=== PATIENT | male | born 1965 | race Caucasian/White ===

== ENCOUNTER 2017-12-21 02:35 | Inpatient (IN) ==
[2017-12-21 03:47] LABS: Hematocrit 36.8 % (39.0-51.0); Hemoglobin 12.2 gm/dL (13.0-17.0); Mean Corpuscular Hemoglobin 30.9 pg (27.0-34.0); Mean Corpuscular Volume 93.4 fL (80.0-100.0); Mean Platelet Volume 8.8 fL (7.0-11.0); Platelet Count 159 th/mm3 (150-450); Red Blood Count 3.94 mil/mm3 (4.50-5.90); Red Cell Distribution Width 15.7 % (11.6-17.2); White Blood Count 9.4 th/mm3 (4.0-11.0)
[2017-12-21] MEDS ORDERED: Lidocaine 1% Inj 30 ML Vial INFILTRATN ONE (03:51)
[2017-12-21] MEDS ORDERED: Lidocaine 1% Inj 50 ML Vial ONE (03:54)
[2017-12-21] MEDS ORDERED: Phytonadione Inj 10 MG/ML Vial SQ ONE (04:50)
--- NOTE | 2017-12-21 05:09 | CT ---
EXAM DATE: 12/21/2017 4:22 AM EDT AGE/SEX: 52 years / Male INDICATIONS: Trauma. Fall with leg swelling. Evaluate for hematoma. CLINICAL DATA: This is the patient's initial encounter. Patient reports that signs and symptoms have been present for 1 day and indicates a pain score of 4/10. MEDICAL/SURGICAL HISTORY: Cardiovascular disease. Hypertension. Diabetes mellitus type II. . Hear t transplant RADIATION DOSE: 29.57 CTDI (mGy) COMPARISON: No prior exams available for comparison. TECHNIQUE: Multiple contiguous axial images were acquired using a multirow detector CT scanner witho ut contrast. Multiplanar reconstruction was performed in the sagittal and coronal planes. Using auto mated exposure control and adjustment of the mA and/or kV according to patient size, radiation dose w as kept as low as reasonably achievable to obtain optimal diagnostic quality images. DICOM format im age data is available electronically for review and comparison. FINDINGS: Bones: Visualized osseous structures are intact without evidence for acute bony fracture. Joints: No significant arthropathy or bony hypertrophy is seen. No significant suprapatellar joint e ffusion. Soft Tissues: There is a heterogeneous predominantly low density mass in the anterior compartment of the left thigh, vastus lateralis, measuring approximately 3.0 x 2.3 x 5.7 cm. There is soft tissue s tranding noted in the medial and anterior thigh. Other: No foreign bodies seen. Diffuse vascular calcifications noted in the SFA and profunda. CONCLUSION: 1. Heterogeneous predominantly low density mass centered about the vastus lateralis measuring 3.0 x 2.3 x 5.7 cm with regional soft tissue stranding in the anterior and medial thigh. In the appropriate clinical setting, findings are consistent with a subacute to chronic hematoma. Differential consider ations include infection and much less likely mass. Electronically signed by: Jon Alfaro MD 12/21/2017 5:08 AM EDT
[2017-12-21] MEDS ORDERED: Bisacodyl 10 MG Supp RECTAL PRN (05:39)
[2017-12-21] MEDS ORDERED: Acetaminophen 325 MG Tablet PO PRN (05:39)
[2017-12-21] MEDS ORDERED: Sod Chloride 0.9% Inj 1,000 ML IV.CONT SCH (05:45)
--- NOTE | 2017-12-21 05:49 | ED ---
HPI General Chief complaint: Fall Stated complaint: fall Time Seen by Provider: 12/21/17 03:19 History of Present Illness HPI narrative: 52-year-old man with factor V Leiden deficiency, on chronic Coumadin therapy, had accidental fall yesterday, struck his lip,Which has been bleeding since that time, is very swollen, but is benign able to get the bleeding stopped on his own. He has a small laceration to the midportion of his lower lip, but simple pressure has not been able to stop it. He follows his INR's regularly, latest was 2 weeks ago, and he is scheduled to have it repeated this week. He has some variation in his diet, possibly reports that he may have been eating fewer leafy greens than he normally does, but has no other change in his habits and no changes in his warfarin dosing. He did not strike his head, there is no loss of consciousness, he did not hit his chest, but he has no headache, no focal neurologic symptoms, no chest pain. Patient also struck his left thigh, in the fall, feels that it is also swollen, it is increasingly uncomfortable. He has no loss of sensation in that area, he has been able to walk on it normally no hip pain, no pelvic pain, no knee swelling or pain. Related Data Home Medications Medication Instructions Recorded Confirmed aspirin 81 mg PO DAILY 12/21/17 12/21/17 calcium carbonate-vitamin D3 tab PO BID 12/21/17 [Calcium 500 + D] losartan 25 mg PO DAILY 12/21/17 12/21/17 magnesium oxide 400 mg PO BID 12/21/17 12/21/17 mycophenolate mofetil [CellCept] 1,000 mg PO BID 12/21/17 12/21/17 omeprazole 20 mg PO DAILY 12/21/17 12/21/17 tacrolimus [Prograf] 2 mg PO Q12H 12/21/17 12/21/17 warfarin [Coumadin] 8 mg PO DAILY 12/21/17 12/21/17 Allergies Allergy/AdvReac Type Severity Reaction Status Date / Time No Known Allergies Allergy Verified 12/21/17 06:28 Review of Systems ROS: all other systems reviewed are negative [facility] Medical History Medical History Diabetes (Acute) HTN (hypertension) (Acute) Hypercholesteremia (Acute) Surgical History Surgical History Hx of heart transplant (Acute) Family History Family History Other CAD (coronary artery disease) Social History Social History Substance History: No History of Abuse Second Hand Smoke Exposure: No Smoking Status: Former smoker Tobacco Type: Cigarettes How Often Do You Have a Drink Containing Alcohol: 2 to 3 times a week Recent Travel in [facility] within the Last 8 Weeks: No Recent Out of Country Travel within the Last 8 Weeks: No Immunization History Tetanus Immunization: Unsure Hx Influenza Vaccine This Season: No Exam Narrative Exam Narrative: GENERAL: Generally healthy-appearing adult male, vital signs are stable, afebrile, but has considerable swelling to his lower lip with ecchymosis, but otherwise little acute distress other than localized pain in his left thigh laterally. SKIN: Focused skin assessment warm/dry. HEAD: Atraumatic. Normocephalic. EYES: Pupils equal and round. No scleral icterus. No injection or drainage. ENT: Large subcutaneous ecchymosis/hematoma across the entire extent of lower lip, with minute 3 mm vertical laceration mid lip surface, with continuous oozing. Teeth are intact, no other mucosal or buccal laceration, tongue is intact. No nasal bleeding or discharge. Mucous membranes pink and moist. NECK: Trachea midline. No JVD. CARDIOVASCULAR: Regular rate and rhythm. No murmur appreciated. RESPIRATORY: No accessory muscle use. Clear to auscultation. Breath sounds equal bilaterally. GASTROINTESTINAL: Abdomen soft, non-tender, nondistended. Hepatic and splenic margins not palpable. MUSCULOSKELETAL: Left thigh is fairly tender lateral overlying the iliotibial band on the left side, with moderate edema and some tension, there is no overt ecchymosis. Hip movement is nontender, knee movement is nontender. NEUROLOGICAL: Awake and alert. No obvious cranial nerve deficits. Motor grossly within normal limits. Normal speech. PSYCHIATRIC: Appropriate mood and affect; insight and judgment normal. Course Initial Documented Vital Signs Temperature 97.9 F 12/21/17 03:00 Pulse Rate 126 H 12/21/17 03:00 Respiratory Rate 18 12/21/17 03:00 Blood Pressure 127/91 H 12/21/17 03:00 Pulse Oximetry 98 12/21/17 03:00 Last Documented Vital Signs Temperature 97.3 F L 12/22/17 08:00 Pulse Rate 133 H 12/22/17 08:00 Respiratory Rate 20 12/22/17 08:00 Blood Pressure 111/59 L 12/22/17 08:00 Pulse Oximetry 96 12/22/17 08:00 Medical Decision Making MDM Narrative Medical decision making narrative: Patient has excess anticoagulation, INR is greater than 18, and cause is not quite clear, but he has no acute change in medication dose, no particular change in diet, and no signs of other illness that would cause alteration of his INR. Further, CT scan shows a 5 x 3 x 3 cm hematoma in the left lateral thigh area, but no fracture. A hemostatic suture was placed in his lip, but this area bled as well, and no further attempts were made at stenting the bleeding, as each suture puncture tended to cause additional bleeding. Hemoglobin is stable, electrolytes are stable, patient administered initial dose of vitamin K, and will be admitted for observation, further care and reversal of excess anticoagulation. Medical Screen Exam Complete: Yes Emergency Medical Condition: Yes Lab Data Result diagrams: 12/22/17 05:02 12/22/17 05:02 Lab Results 12/21/17 12/21/17 12/21/17 Range/Units 03:42 03:42 05:07 WBC 9.4 (4.0-11.0) th/mm3 RBC 3.94 L (4.50-5.90) mil/mm3 Hgb 12.2 L (13.0-17.0) gm/dL Hct 36.8 L (39.0-51.0) % MCV 93.4 (80.0-100.0) fL MCH 30.9 (27.0-34.0) pg MCHC 33.0 (32.0-36.0) % RDW 15.7 (11.6-17.2) % Plt Count 159 (150-450) th/mm3 MPV 8.8 (7.0-11.0) fL Neut % (Auto) (16.0-70.0) % Lymph % (Auto) (9.0-44.0) % Maries % (Auto) (0.0-8.0) % Eos % (Auto) (0.0-4.0) % Baso % (Auto) (0.0-2.0) % Neut # (Auto) (1.8-7.7) th/mm3 Lymph # (Auto) (1.0-4.8) th/mm3 Maries # (Auto) (0.0-0.9) th/mm3 Eos # (Auto) (0.0-0.4) th/mm3 Baso # (Auto) (0.0-0.2) th/mm3 WBC Differential Differential Comment PT Greater than 180.0 H (9.8-11.6) sec INR Greater than 18.2 H* Ratio APTT (24.3-30.1) sec Sodium 137 (136-145) meq/L Potassium 4.9 (3.5-5.1) meq/L Chloride 102 (98-107) meq/L Carbon Dioxide 22.0 (21.0-32.0) meq/L Anion Gap 13 (5-15) meq/L BUN 36 H (7-18) mg/dL Creatinine 1.40 H (0.60-1.30) mg/dL Estimated GFR 53 L (>89) mL/min POC Glucose (68-110) mg/dl Random Glucose 447 H (74-106) mg/dL Calcium 7.8 L (8.5-10.1) mg/dL Total Bilirubin 0.8 (0.2-1.0) mg/dL AST 92 H (15-37) U/L ALT 116 H (12-78) U/L Alkaline Phosphatase 137 H (45-117) U/L Total Protein 6.1 L (6.4-8.2) g/dL Albumin 3.2 L (3.4-5.0) g/dL 12/21/17 12/21/17 12/21/17 Range/Units 05:07 06:55 10:04 WBC (4.0-11.0) th/mm3 RBC (4.50-5.90) mil/mm3 Hgb (13.0-17.0) gm/dL Hct (39.0-51.0) % MCV (80.0-100.0) fL MCH (27.0-34.0) pg MCHC (32.0-36.0) % RDW (11.6-17.2) % Plt Count (150-450) th/mm3 MPV (7.0-11.0) fL Neut % (Auto) (16.0-70.0) % Lymph % (Auto) (9.0-44.0) % Maries % (Auto) (0.0-8.0) % Eos % (Auto) (0.0-4.0) % Baso % (Auto) (0.0-2.0) % Neut # (Auto) (1.8-7.7) th/mm3 Lymph # (Auto) (1.0-4.8) th/mm3 Maries # (Auto) (0.0-0.9) th/mm3 Eos # (Auto) (0.0-0.4) th/mm3 Baso # (Auto) (0.0-0.2) th/mm3 WBC Differential Differential Comment PT (9.8-11.6) sec INR Ratio APTT 69.6 H (24.3-30.1) sec Sodium (136-145) meq/L Potassium (3.5-5.1) meq/L Chloride (98-107) meq/L Carbon Dioxide (21.0-32.0) meq/L Anion Gap (5-15) meq/L BUN (7-18) mg/dL Creatinine (0.60-1.30) mg/dL Estimated GFR (>89) mL/min POC Glucose 463 H* 384 H (68-110) mg/dl Random Glucose (74-106) mg/dL Calcium (8.5-10.1) mg/dL Total Bilirubin (0.2-1.0) mg/dL AST (15-37) U/L ALT (12-78) U/L Alkaline Phosphatase (45-117) U/L Total Protein (6.4-8.2) g/dL Albumin (3.4-5.0) g/dL 12/21/17 12/21/17 12/21/17 Range/Units 10:53 12:01 17:04 WBC (4.0-11.0) th/mm3 RBC (4.50-5.90) mil/mm3 Hgb (13.0-17.0) gm/dL Hct (39.0-51.0) % MCV (80.0-100.0) fL MCH (27.0-34.0) pg MCHC (32.0-36.0) % RDW (11.6-17.2) % Plt Count (150-450) th/mm3 MPV (7.0-11.0) fL Neut % (Auto) (16.0-70.0) % Lymph % (Auto) (9.0-44.0) % Maries % (Auto) (0.0-8.0) % Eos % (Auto) (0.0-4.0) % Baso % (Auto) (0.0-2.0) % Neut # (Auto) (1.8-7.7) th/mm3 Lymph # (Auto) (1.0-4.8) th/mm3 Maries # (Auto) (0.0-0.9) th/mm3 Eos # (Auto) (0.0-0.4) th/mm3 Baso # (Auto) (0.0-0.2) th/mm3 WBC Differential Differential Comment PT 94.4 H D (9.8-11.6) sec INR 9.5 H* Ratio APTT (24.3-30.1) sec Sodium (136-145) meq/L Potassium (3.5-5.1) meq/L Chloride (98-107) meq/L Carbon Dioxide (21.0-32.0) meq/L Anion Gap (5-15) meq/L BUN (7-18) mg/dL Creatinine (0.60-1.30) mg/dL Estimated GFR (>89) mL/min POC Glucose 317 H 179 H (68-110) mg/dl Random Glucose (74-106) mg/dL Calcium (8.5-10.1) mg/dL Total Bilirubin (0.2-1.0) mg/dL AST (15-37) U/L ALT (12-78) U/L Alkaline Phosphatase (45-117) U/L Total Protein (6.4-8.2) g/dL Albumin (3.4-5.0) g/dL 12/21/17 12/22/17 12/22/17 Range/Units 21:34 05:02 05:02 WBC 7.1 (4.0-11.0) th/mm3 RBC 3.00 L (4.50-5.90) mil/mm3 Hgb 9.4 L D (13.0-17.0) gm/dL Hct 27.9 L (39.0-51.0) % MCV 93.1 (80.0-100.0) fL MCH 31.3 (27.0-34.0) pg MCHC 33.6 (32.0-36.0) % RDW 15.9 (11.6-17.2) % Plt Count 113 L (150-450) th/mm3 MPV 8.6 (7.0-11.0) fL Neut % (Auto) 76.8 H (16.0-70.0) % Lymph % (Auto) 14.3 (9.0-44.0) % Maries % (Auto) 7.6 (0.0-8.0) % Eos % (Auto) 0.9 (0.0-4.0) % Baso % (Auto) 0.4 (0.0-2.0) % Neut # (Auto) 5.4 (1.8-7.7) th/mm3 Lymph # (Auto) 1.0 (1.0-4.8) th/mm3 Maries # (Auto) 0.5 (0.0-0.9) th/mm3 Eos # (Auto) 0.1 (0.0-0.4) th/mm3 Baso # (Auto) 0.0 (0.0-0.2) th/mm3 WBC Differential . Differential Comment Auto diff final PT 29.4 H D (9.8-11.6) sec INR 2.9 Ratio APTT (24.3-30.1) sec Sodium (136-145) meq/L Potassium (3.5-5.1) meq/L Chloride (98-107) meq/L Carbon Dioxide (21.0-32.0) meq/L Anion Gap (5-15) meq/L BUN (7-18) mg/dL Creatinine (0.60-1.30) mg/dL Estimated GFR (>89) mL/min POC Glucose 248 H (68-110) mg/dl Random Glucose (74-106) mg/dL Calcium (8.5-10.1) mg/dL Total Bilirubin (0.2-1.0) mg/dL AST (15-37) U/L ALT (12-78) U/L Alkaline Phosphatase (45-117) U/L Total Protein (6.4-8.2) g/dL Albumin (3.4-5.0) g/dL 10/02/18 10/02/18 Range/Units 05:02 07:34 WBC (4.0-11.0) th/mm3 RBC (4.50-5.90) mil/mm3 Hgb (13.0-17.0) gm/dL Hct (39.0-51.0) % MCV (80.0-100.0) fL MCH (27.0-34.0) pg MCHC (32.0-36.0) % RDW (11.6-17.2) % Plt Count (150-450) th/mm3 MPV (7.0-11.0) fL Neut % (Auto) (16.0-70.0) % Lymph % (Auto) (9.0-44.0) % Maries % (Auto) (0.0-8.0) % Eos % (Auto) (0.0-4.0) % Baso % (Auto) (0.0-2.0) % Neut # (Auto) (1.8-7.7) th/mm3 Lymph # (Auto) (1.0-4.8) th/mm3 Maries # (Auto) (0.0-0.9) th/mm3 Eos # (Auto) (0.0-0.4) th/mm3 Baso # (Auto) (0.0-0.2) th/mm3 WBC Differential Differential Comment PT (9.8-11.6) sec INR Ratio APTT (24.3-30.1) sec Sodium 140 (136-145) meq/L Potassium 4.1 D (3.5-5.1) meq/L Chloride 104 (98-107) meq/L Carbon Dioxide 26.1 (21.0-32.0) meq/L Anion Gap 10 (5-15) meq/L BUN 32 H (7-18) mg/dL Creatinine 1.13 (0.60-1.30) mg/dL Estimated GFR 68 L (>89) mL/min POC Glucose 272 H (68-110) mg/dl Random Glucose 170 H D (74-106) mg/dL Calcium 7.8 L (8.5-10.1) mg/dL Total Bilirubin 1.0 (0.2-1.0) mg/dL AST 54 H (15-37) U/L ALT 73 (12-78) U/L Alkaline Phosphatase 112 (45-117) U/L Total Protein 5.6 L (6.4-8.2) g/dL Albumin 2.8 L (3.4-5.0) g/dL Imaging Data Radiologist's impression: Femur CT 12/21/17 04:15 CONCLUSION: 1. Heterogeneous predominantly low density mass centered about the vastus lateralis measuring 3.0 x 2.3 x 5.7 cm with regional soft tissue stranding in the anterior and medial thigh. In the appropriate clinical setting, findings are consistent with a subacute to chronic hematoma. Differential considerations include infection and much less likely mass. Discharge Plan Discharge Disposition Patient Disposition: 30 Still Patient Discharge Condition Condition: Stable Discharge Order Discharge Orders: Discharge Order (Routine); Ordered 12/22/17 Ordered By: Chato Orozco Discharge Details Diagnosis: Anticoagulation excessive Physicians Team ED Provider: Elijah Baumann Primary Care Provider: Richardson Lawson Attending Provider: Chato Orozco Status ED Status: Left Department Discharge Information Discharge Date/Time: 12/21/17 08:11
[2017-12-21 05:52] LABS: Alanine Aminotransferase 116 U/L (12-78); Albumin 3.2 g/dL (3.4-5.0); Alkaline Phosphatase 137 U/L (45-117); Anion Gap 13 meq/L (5-15); Aspartate Aminotransferase 92 U/L (15-37); Blood Urea Nitrogen 36 mg/dL (7-18); Calcium 7.8 mg/dL (8.5-10.1); Chloride 102 meq/L (98-107); Glomerular Filtration Rate 53 mL/min (>89); Glucose,Random 447 mg/dL (74-106); Potassium 4.9 meq/L (3.5-5.1); Sodium 137 meq/L (136-145); Total Protein 6.1 g/dL (6.4-8.2)
[2017-12-21] MEDS ORDERED: Dextrose 50% in Water 50 ML Vial IV.PUSH PRN ×2 (05:52→10:09)
[2017-12-21] MEDS: Morphine Inj 4 MG/ML Vial IV.PUSH PRN ×4 (06:11→21:41)
[2017-12-21] MEDS ORDERED: Insulin NovoLOG Aspart Correctional Sugar Inj SQ SCH (08:00)
[2017-12-21] MEDS ORDERED: Senna/Docusate Sodium 8.6/50 MG Tablet PO SCH (09:00)
[2017-12-21] MEDS: Pantoprazole Sodium 20 MG DR Tablet PO SCH (09:06)
[2017-12-21] MEDS ORDERED: Naloxone Inj 0.4 MG/ML Vial IV.PUSH PRN (10:51)
[2017-12-21 11:30] LABS: Prothrombin Time 94.4 sec (9.8-11.6)
--- NOTE | 2017-12-21 11:36 | P.HP ---
History of Present Illness Primary Care Physician: Richardson Lawson MD Chief Complaint: Mechanical fall, bleeding gum, elevated INR History of Present Illness: 52-year-old man with a past medical history of factor V Leiden deficiency, according Coumadin for multiple episode of PEs and DVTs came to the ED yesterday for evaluation of bleeding lower lip as well as left lower extremity pain after patient's sustained a mechanical fall. While in the ED, patient was found to have INR above 18 for which he was given vitamin K. Patient states, he usually monitor his INR once a month and its falls in the range of 2-3. However states over the past several days he may have taking more than his usual dose of Coumadin, despite eating fewer leafy greens than he normally does. Denies any hemoptysis, hematuria, hematemesis. He has no chest pain or shortness of breath. - Diagnosis (1) Diabetes type 2, uncontrolled (2) Diabetes mellitus, type 2 (3) Anticoagulation excessive (4) Hematoma (5) Hematoma of lower limb Inpatient Certification: I certify that the inpatient services were ordered in accordance with Medicare regulations governing the order. This includes certification that hospital inpatient services are reasonable and necessary and in the case of services not specified as inpatient-only under 42 CFR 419.22(n), that they are appropriately provided as inpatient services in accordance to with the 2-midnight benchmark under 43 CFR 412.3(e) Estimated Total Length of Stay (Days): 2 Plans for Post Hospital Care: Not yet determined Review of Systems All other systems reviewed negative except as stated in HPI PMFSH - History History Provided By: Patient - Medical History Medical History: Medical History (Last Updated 12/21/17 @ 03:06 by Srinath Hernandez) Diabetes HTN (hypertension) Hypercholesteremia - Surgical History Surgical History: Surgical History (Last Updated 12/21/17 @ 03:06 by Srinath Hernandez) Hx of heart transplant - Family History Family History: Family History (Last Updated 12/21/17 @ 11:28 by Chato Orozco MD) Other CAD (coronary artery disease) - Tobacco History Second Hand Smoke Exposure: No Tobacco Use In Past 30 Days: No Smoking Status: Former smoker Tobacco Type: Cigarettes - Alcohol History How Often Do You Have a Drink Containing Alcohol: 2 to 3 times a week - Substance Use History Substance History: No History of Abuse - Travel History Recent Travel in the [place] Within the Last 8 Weeks: No Recent Travel Out of the Country Within the Last 8 Weeks: No - Immunization History Tetanus Immunization: Unsure Hx Influenza Vaccine This Season: No Medications and Allergies Active Medications: Active Medications Acetaminophen (Tylenol) 650 mg PO Q4H PRN PRN Reason: Temp > 100.4 Hydrocodone Bitart/Acetaminophen ([place] 5/325) 1 tab PO Q4H PRN PRN Reason: PAIN SCALE 3 TO 5 Hydrocodone Bitart/Acetaminophen ([place] 7.5/325) 1 tab PO Q4H PRN PRN Reason: PAIN SCALE 6 TO 10 Al Hydroxide/Mg Hydroxide (Milk Of Magnesia Liq) 30 ml PO Q12H PRN PRN Reason: Mild Constipation Bisacodyl (Dulcolax Supp) 10 mg RECTAL DAILY PRN PRN Reason: SEVERE CONSITIPATION Dextrose (D50w Vial) 50 ml IV.PUSH UNSCH PRN PRN Reason: PER HYPOGLYCEMIA PROTOCOL Glucagon (Glucagon Inj) 1 mg OTHER UNSCH PRN PRN Reason: for Hypoglycemia Protocol Insulin Aspart (Novolog Insulin Correctional Sugar Inj) 0 unit SQ ACHS [facility]HEL; Protocol Insulin Detemir (Levemir Inj) 28 unit SQ DAILY [facility] Lactulose (Lactulose Liq) 30 ml PO DAILY PRN PRN Reason: SEVERE CONSITIPATION Losartan Potassium (Cozaar) 25 mg PO DAILY [facility] Morphine Sulfate (Morphine Inj) 2 mg IV.PUSH Q4H PRN PRN Reason: PAIN 6-10 Last Admin: 12/21/17 10:33 Dose: 2 mg Mycophenolate Mofetil (Cellcept) 1,000 mg PO BID [facility] Last Admin: 12/21/17 10:01 Dose: 1,000 mg Naloxone HCl (Narcan Inj) 0.4 mg IV.PUSH UNSCH PRN PRN Reason: SEE LABEL COMMENTS Non-Formulary Medication (Magnesium Oxide [Magnesium Oxide]) 400 mg PO BID [facility] Ondansetron HCl (Zofran Inj) 4 mg IV.PUSH Q6H PRN PRN Reason: NAUSEA OR VOMITING Last Admin: 12/21/17 06:12 Dose: 4 mg Pantoprazole Sodium (Protonix) 20 mg PO DAILY [facility] Last Admin: 12/21/17 09:06 Dose: 20 mg Sennosides (Senokot) 17.2 mg PO Q12H PRN PRN Reason: Moderate Constipation Tacrolimus (Prograf) 2 mg PO Q12H [facility] Last Admin: 12/21/17 06:55 Dose: 2 mg Allergies Allergy/AdvReac Type Severity Reaction Status Date / Time No Known Allergies Allergy Verified 12/21/17 06:28 Home Medications Medication Instructions Recorded Confirmed Type aspirin 81 mg PO DAILY 12/21/17 12/21/17 History calcium carbonate-vitamin D3 tab PO BID 12/21/17 History [Calcium 500 + D] losartan 25 mg PO DAILY 12/21/17 12/21/17 History magnesium oxide 400 mg PO BID 12/21/17 12/21/17 History mycophenolate mofetil [CellCept] 1,000 mg PO BID 12/21/17 12/21/17 History omeprazole 20 mg PO DAILY 12/21/17 12/21/17 History tacrolimus [Prograf] 2 mg PO Q12H 12/21/17 12/21/17 History warfarin [Coumadin] 8 mg PO DAILY 12/21/17 12/21/17 History Exam Vital signs: Vital Signs 12/21/17 03:00 12/21/17 03:16 12/21/17 08:00 Temperature 97.9 F 98.0 F Pulse Rate 126 H 120 H 108 H Respiratory Rate 18 18 16 Blood Pressure 127/91 H 132/91 H 122/80 Pulse Oximetry 98 96 98 Intake & Output 12/20/17 12/21/17 12/21/17 18:59 06:59 18:59 Intake Total 100 / 100 Balance 100 / 100 Weight 120.202 kg 113.39 kg Intake: IV 100 / 100 NS Inj 1,000 ML @ 100 mls/hr IV 100 / 100 .CONT .Q10H [facility] Rx#:[id number] Other: Weight On Admission 113.39 kg Narrative: GENERAL: NAD SKIN: Warm and dry. HEAD: Atraumatic. Normocephalic. EYES: Pupils equal and round. No scleral icterus. No injection or drainage. ENT: No nasal bleeding or discharge. Mucous membranes pink and moist. Swallow midportion lower lip with dried blood NECK: Trachea midline. No JVD. CARDIOVASCULAR: Regular rate and rhythm. RESPIRATORY: No accessory muscle use. Clear to auscultation. Breath sounds equal bilaterally. GASTROINTESTINAL: Abdomen soft, non-tender, nondistended. Hepatic and splenic margins not palpable. MUSCULOSKELETAL: Extremities without clubbing, cyanosis, or edema. No obvious deformities. Tender to palpation left hip area NEUROLOGICAL: Awake and alert. No obvious cranial nerve deficits. Motor grossly within normal limits. Five out of 5 muscle strength in the arms and legs. Normal speech. PSYCHIATRIC: Appropriate mood and affect; insight and judgment normal. Results - Labs CBC & Chem 7: 12/21/17 03:42 12/21/17 05:07 Labs: Laboratory Results - last 24 hr 12/21/17 12/21/17 12/21/17 03:42 03:42 05:07 WBC 9.4 RBC 3.94 L Hgb 12.2 L Hct 36.8 L MCV 93.4 MCH 30.9 MCHC 33.0 RDW 15.7 Plt Count 159 MPV 8.8 PT Greater than 180.0 H INR Greater than 18.2 H* APTT Sodium 137 Potassium 4.9 Chloride 102 Carbon Dioxide 22.0 Anion Gap 13 BUN 36 H Creatinine 1.40 H Estimated GFR 53 L POC Glucose Random Glucose 447 H Calcium 7.8 L Total Bilirubin 0.8 AST 92 H ALT 116 H Alkaline Phosphatase 137 H Total Protein 6.1 L Albumin 3.2 L 12/21/17 12/21/17 12/21/17 05:07 06:55 10:04 WBC RBC Hgb Hct MCV MCH MCHC RDW Plt Count MPV PT INR APTT 69.6 H Sodium Potassium Chloride Carbon Dioxide Anion Gap BUN Creatinine Estimated GFR POC Glucose 463 H* 384 H Random Glucose Calcium Total Bilirubin AST ALT Alkaline Phosphatase Total Protein Albumin - Imaging Impressions Femur CT 12/21/17 04:15 CONCLUSION: 1. Heterogeneous predominantly low density mass centered about the vastus lateralis measuring 3.0 x 2.3 x 5.7 cm with regional soft tissue stranding in the anterior and medial thigh. In the appropriate clinical setting, findings are consistent with a subacute to chronic hematoma. Differential considerations include infection and much less likely mass. Caprini VTE Risk Assessment Caprini VTE Risk Assessment: Moderate/High Risk (score >= 2) VTE Pharmacological Exception Reason: Coagulopathy,INR elevated Caprini Risk Assessment Model: Point Value = 1 Point Value = 2 Point Value = 3 Point Value = 5 Age 41-60 Minor surgery BMI > 25 kg/m2 Swollen legs Varicose veins or History of unexplained or recurrent spontaneous Oral contraceptives or hormone replacement Sepsis (< 1 month) Serious lung disease, including pneumonia (< 1 month) Abnormal pulmonary function Acute myocardial infarction Congestive heart failure (< 1 month) History of inflammatory bowel disease Medical patient at bed rest Age 61-74 Arthroscopic surgery Major open surgery (> 45 min) Laparoscopic surgery (> 45 min) Malignancy Confined to bed (> 72 hours) Immobilizing plaster cast Central venous access Age >= 75 History of VTE Family history of VTE Factor V Leiden Prothrombin [id number] Lupus anticoagulant Anticardiolipin antibodies Elevated serum homocysteine Heparin-induced thrombocytopenia Other congenital or acquired thrombophilia Stroke (< 1 month) Elective arthroplasty Hip, pelvis, or leg fracture Acute spinal cord injury (< 1 month) Prophylaxis Regimen: Total Risk Factor Score Risk Level Prophylaxis Regimen 0-1 Low Early ambulation 2 Moderate Order ONE of the following: *Sequential Compression Device (SCD) *Heparin 5000 units SQ BID 3-4 Higher Order ONE of the following medications: *Heparin 5000 units SQ TID *Enoxaparin/Lovenox 40 mg SQ daily (WT < 150 kg, CrCl > 30 mL/min) *Enoxaparin/Lovenox 30 mg SQ daily (WT < 150 kg, CrCl > 10-29 mL/min) *Enoxaparin/Lovenox 30 mg SQ BID (WT < 150 kg, CrCl > 30 mL/min) AND/OR *Sequential Compression Device (SCD) 5 or more Highest Order ONE of the following medications: *Heparin 5000 units SQ TID (Preferred with Epidurals) *Enoxaparin/Lovenox 40 mg SQ daily (WT < 150 kg, CrCl > 30 mL/min) *Enoxaparin/Lovenox 30 mg SQ daily (WT < 150 kg, CrCl > 10-29 mL/min) *Enoxaparin/Lovenox 30 mg SQ BID (WT < 150 kg, CrCl > 30 mL/min) AND *Sequential Compression Device (SCD) Assessment and Plan - Assessment (1) Diabetes type 2, uncontrolled Code(s): E11.65 - Status: Acute (2) Diabetes mellitus, type 2 Code(s): E11.9 - Status: Acute (3) Anticoagulation excessive Status: Acute (4) Hematoma Code(s): T14.8XXA - Status: Acute (5) Hematoma of lower limb Code(s): S80.10XA - Status: Acute - Plan 52-year-old male with Coagulopathy Status Post treatment with vitamin K in the ED Monitor INR and PT History of PEs and DVT, on chronic Coumadin Secondary to coagulopathy, continue to hold INR and PT Hematoma of left lower extremity Femur CT noted and reviewed by me with finding of hematoma 3.0 x 2.3 x 5.7 cm with regional soft tissue stranding in the anterior and medial thigh. Diabetes type 2 Resume Levemir 28 units daily, change to High ISS History of factor V Leiden deficiency Chronic, outpatient management DVT Prophylaxis Chemical anti-prophylactic is contraindicated Compression stocking/SCD is also contraindicated secondary to hematoma
[2017-12-21 11:42] LABS: INR 9.5 Ratio
[2017-12-21] MEDS: Insulin Detemir Inj 1,000 UNIT/10 ML Vial SQ SCH (12:07)
[2017-12-21] MEDS: Insulin NovoLOG Aspart Correctional Sugar Inj SQ SCH ×3 (12:07→21:45)
[2017-12-21] MEDS: Magnesium Oxide 400 MG Tablet PO SCH ×2 (14:33→21:47)
--- NOTE | 2017-12-21 15:50 | ECG ---
Date Performed: 12/21/2017 Time Performed: 03:14:34 PTAGE: 52 years EKG: SINUS TACHYCARDIA NONSPECIFIC T-WAVE ABNORMALITY ABNORMAL ECG PREVIOUS TRACING :12/10/2013 @11.10 Compared to previous tracing, previously noted paced rhythm is no longer present. DOCTOR: Yuliet Zafar Interpretating Date/Time 12/21/2017 15:50:05
[2017-12-22 02:22] VITALS: O2SAT 96
[2017-12-22] MEDS: Morphine Inj 4 MG/ML Vial IV.PUSH PRN (05:03)
[2017-12-22 06:50] LABS: Baso % (Auto) 0.4 % (0.0-2.0); Eos # (Auto) 0.1 th/mm3 (0.0-0.4); Eos % (Auto) 0.9 % (0.0-4.0); Hematocrit 27.9 % (39.0-51.0); Hemoglobin 9.4 gm/dL (13.0-17.0); Lymph % (Auto) 14.3 % (9.0-44.0); Mean Corpuscular HGB Conc 33.6 % (32.0-36.0); Mean Corpuscular Hemoglobin 31.3 pg (27.0-34.0); Mean Corpuscular Volume 93.1 fL (80.0-100.0); Mean Platelet Volume 8.6 fL (7.0-11.0); Mono # (Auto) 0.5 th/mm3 (0.0-0.9); Mono % (Auto) 7.6 % (0.0-8.0); Neut # (Auto) 5.4 th/mm3 (1.8-7.7); Neut % (Auto) 76.8 % (16.0-70.0); Platelet Count 113 th/mm3 (150-450); Red Cell Distribution Width 15.9 % (11.6-17.2); White Blood Count 7.1 th/mm3 (4.0-11.0)
[2017-12-22 06:51] LABS: INR 2.9 Ratio; Prothrombin Time 29.4 sec (9.8-11.6)
[2017-12-22 07:48] LABS: Alanine Aminotransferase 73 U/L (12-78); Albumin 2.8 g/dL (3.4-5.0); Alkaline Phosphatase 112 U/L (45-117); Anion Gap 10 meq/L (5-15); Aspartate Aminotransferase 54 U/L (15-37); Blood Urea Nitrogen 32 mg/dL (7-18); Calcium 7.8 mg/dL (8.5-10.1); Carbon Dioxide 26.1 meq/L (21.0-32.0); Chloride 104 meq/L (98-107); Glomerular Filtration Rate 68 mL/min (>89); Glucose,Random 170 mg/dL (74-106); Potassium 4.1 meq/L (3.5-5.1); Sodium 140 meq/L (136-145); Total Protein 5.6 g/dL (6.4-8.2)
[2017-12-22] MEDS: Pantoprazole Sodium 20 MG DR Tablet PO SCH (08:29)
[2017-12-22] MEDS: Magnesium Oxide 400 MG Tablet PO SCH (08:29)
[2017-12-22 08:34] VITALS: BP 111/59; PULSE 133; RESP 20; TEMP 97.3
--- NOTE | 2017-12-22 09:03 | P.PN ---
Subjective Interval history: Follow-up coagulopathy December 22, 2017-patient seen and examined, INR down to 2.9; he complains of left lower extremity thigh pain and states it hurts to put weight on it otherwise no other issues. Physical Exam Vital signs: Vital Signs 12/21/17 12:00 12/21/17 12:49 12/21/17 15:55 Temperature 97.9 F Pulse Rate 118 H Respiratory Rate 16 16 18 Blood Pressure 127/90 Pulse Oximetry 98 12/21/17 16:00 12/21/17 18:13 12/21/17 20:00 Temperature 98.0 F 98.3 F Pulse Rate 112 H 114 H Respiratory Rate 16 18 18 Blood Pressure 123/80 131/77 Pulse Oximetry 97 94 L 12/22/17 00:00 12/22/17 04:00 12/22/17 05:41 Temperature 98.3 F 98.4 F Pulse Rate 116 H 117 H Respiratory Rate 18 18 19 Blood Pressure 125/74 114/60 Pulse Oximetry 96 96 12/22/17 08:00 Temperature 97.3 F L Pulse Rate 133 H Respiratory Rate 20 Blood Pressure 111/59 L Pulse Oximetry 96 Intake & Output 12/21/17 12/22/17 12/22/17 18:59 06:59 18:59 Intake Total 580 / 580 Balance 580 / 580 Weight 113.39 kg 113.39 kg Intake: IV 100 / 100 NS Inj 1,000 ML @ 100 mls/hr IV 100 / 100 .CONT .Q10H [facility] Rx#:[id number] Oral 480 / 480 Other: # Voids 2 Date of Last Bowel Movement 12/21/17 12/21/17 # Bowel Movements 1 Weight On Admission 113.39 kg Narrative: GENERAL: NAD SKIN: Warm and dry. HEAD: Atraumatic. Normocephalic. EYES: Pupils equal and round. No scleral icterus. No injection or drainage. ENT: No nasal bleeding or discharge. Mucous membranes pink and moist. Swallow midportion lower lip with dried blood NECK: Trachea midline. No JVD. CARDIOVASCULAR: Regular rate and rhythm. RESPIRATORY: No accessory muscle use. Clear to auscultation. Breath sounds equal bilaterally. GASTROINTESTINAL: Abdomen soft, non-tender, nondistended. Hepatic and splenic margins not palpable. MUSCULOSKELETAL: Extremities without clubbing, cyanosis, or edema. No obvious deformities. Tender to palpation left hip area NEUROLOGICAL: Awake and alert. No obvious cranial nerve deficits. Motor grossly within normal limits. Five out of 5 muscle strength in the arms and legs. Normal speech. PSYCHIATRIC: Appropriate mood and affect; insight and judgment normal. Results - Labs CBC & Chem 7: 12/22/17 05:02 12/22/17 05:02 Laboratory Results - last 24 hr 12/21/17 12/21/17 12/21/17 10:04 10:53 12:01 WBC RBC Hgb Hct MCV MCH MCHC RDW Plt Count MPV Neut % (Auto) Lymph % (Auto) Wood % (Auto) Eos % (Auto) Baso % (Auto) Neut # (Auto) Lymph # (Auto) Wood # (Auto) Eos # (Auto) Baso # (Auto) WBC Differential Differential Comment PT 94.4 H D INR 9.5 H* Sodium Potassium Chloride Carbon Dioxide Anion Gap BUN Creatinine Estimated GFR POC Glucose 384 H 317 H Random Glucose Calcium Total Bilirubin AST ALT Alkaline Phosphatase Total Protein Albumin 12/21/17 12/21/17 12/22/17 17:04 21:34 05:02 WBC 7.1 RBC 3.00 L Hgb 9.4 L D Hct 27.9 L MCV 93.1 MCH 31.3 MCHC 33.6 RDW 15.9 Plt Count 113 L MPV 8.6 Neut % (Auto) 76.8 H Lymph % (Auto) 14.3 Wood % (Auto) 7.6 Eos % (Auto) 0.9 Baso % (Auto) 0.4 Neut # (Auto) 5.4 Lymph # (Auto) 1.0 Wood # (Auto) 0.5 Eos # (Auto) 0.1 Baso # (Auto) 0.0 WBC Differential . Differential Comment Auto diff final PT INR Sodium Potassium Chloride Carbon Dioxide Anion Gap BUN Creatinine Estimated GFR POC Glucose 179 H 248 H Random Glucose Calcium Total Bilirubin AST ALT Alkaline Phosphatase Total Protein Albumin 12/22/17 12/22/17 12/22/17 05:02 05:02 07:34 WBC RBC Hgb Hct MCV MCH MCHC RDW Plt Count MPV Neut % (Auto) Lymph % (Auto) Wood % (Auto) Eos % (Auto) Baso % (Auto) Neut # (Auto) Lymph # (Auto) Wood # (Auto) Eos # (Auto) Baso # (Auto) WBC Differential Differential Comment PT 29.4 H D INR 2.9 Sodium 140 Potassium 4.1 D Chloride 104 Carbon Dioxide 26.1 Anion Gap 10 BUN 32 H Creatinine 1.13 Estimated GFR 68 L POC Glucose 272 H Random Glucose 170 H D Calcium 7.8 L Total Bilirubin 1.0 AST 54 H ALT 73 Alkaline Phosphatase 112 Total Protein 5.6 L Albumin 2.8 L - Procedures none Assessment and Plan - Assessment (1) Diabetes type 2, uncontrolled Code(s): E11.65 - Type 2 diabetes mellitus with hyperglycemia Status: Acute (2) Diabetes mellitus, type 2 Code(s): E11.9 - Type 2 diabetes mellitus without complications Status: Acute (3) Anticoagulation excessive Status: Acute (4) Hematoma Code(s): T14.8XXA - Other injury of unspecified body region, initial encounter Status: Acute (5) Hematoma of lower limb Code(s): S80.10XA - Contusion of unspecified lower leg, initial encounter Status: Acute - Plan 52-year-old male with Coagulopathy-resolved Status Post treatment with vitamin K in the ED INR down to 2.9, however will continue to hold Coumadin 1 more day. Patient was advised to resume Coumadin tomorrow December 23, 2017. Need recheck INR Monitor INR and PT History of PEs and DVT, on chronic Coumadin Secondary to coagulopathy, continue to hold Coumadin despite INR down to 2.9 Hematoma of left lower extremity Femur CT noted and reviewed by me with finding of hematoma 3.0 x 2.3 x 5.7 cm with regional soft tissue stranding in the anterior and medial thigh. Diabetes type 2 Continue Levemir 28 units daily, High ISS History of factor V Leiden deficiency Chronic, outpatient management DVT Prophylaxis Chemical anti-prophylactic is contraindicated Compression stocking/SCD is also contraindicated secondary to hematoma Discharge patient to home Condition on discharge: Improved Regular Diet as tolerated Ad Ashley activity Rx written: none Follow-up with primary care physician in 1 week
[2017-12-22] MEDS: Insulin NovoLOG Aspart Correctional Sugar Inj SQ SCH (09:10)
[2017-12-22] MEDS: Insulin Detemir Inj 1,000 UNIT/10 ML Vial SQ SCH (09:11)
== END 2017-12-22 11:35 | disposition home or self-care (01) ==
LOC: NEPC 02:35 → NEDA 05:51 → N05 08:27
PROVIDERS: ADMIT Hospitalist; ATTEND Hospitalist